=== PATIENT | female | born 1960 | race Caucasian/White ===

== ENCOUNTER 2018-01-16 08:04 | Observation (INO) ==
--- NOTE | 2018-01-16 08:44 | ED ---
HPI General Chief Complaint: Chest Pain Stated Complaint: chest pressure Time Seen by Provider: 01/16/18 08:31 History of Present Illness HPI narrative: Patient presents to the emergency department complaining of chest pain. That she was sitting on her couch when she got hot, sweaty, clammy , and had chest heaviness. New onset of symptoms. Chest pains described as midsternal, heavy, nonradiating, constant for 30 minutes and now is intermittent , no alleviating or aggravating factors, chest pain is now 5-6 out of 10. Patient was given 1 nitro by EVAC via spray, she took 1 aspirin at home and was given 3 more by EVAC. States that her pain was not helped with the nitroglycerin. She denies fever, chills, vomiting, lower extremity edema, but does report lightheadedness and dizziness and nausea. She also recently traveled to [place] approximately 2 weeks ago and was in the car for approximately 12-1/2 hours. She has no local it trainer as she just moved from [place]. Complete Quality Measures for STEMI Alert Patients Related Data Home Medications Medication Instructions Recorded Confirmed atorvastatin 20 mg PO DAILY 01/16/18 01/16/18 carvedilol 3.125 mg PO BID 01/16/18 01/16/18 hydrochlorothiazide 12.5 mg PO DAILY 01/16/18 01/16/18 montelukast 10 mg PO QPM 01/16/18 01/16/18 naproxen 500 mg PO BID 01/16/18 01/16/18 omeprazole 40 mg PO DAILY 01/16/18 01/16/18 ranitidine HCl 150 mg PO DAILY 01/16/18 01/16/18 Allergies Allergy/AdvReac Type Severity Reaction Status Date / Time No Known Allergies Allergy Verified 01/16/18 08:19 Review of Systems ROS Unobtainable All other systems reviewed negative except as stated in HPI PMFSH Social History Social History Substance History: No History of Abuse Second Hand Smoke Exposure: No Smoking Status: Former smoker Tobacco Type: Cigarettes How Often Do You Have a Drink Containing Alcohol: 2 to 4 times a month Recent Travel in [facility] within the Last 8 Weeks: No Recent Out of Country Travel within the Last 8 Weeks: No Immunization History Tetanus Immunization: >5 Years Hx Influenza Vaccine This Season: Yes Exam Narrative Exam Narrative: GENERAL: No acute distress. SKIN: Focused skin assessment warm/dry. HEAD: Atraumatic. Normocephalic. EYES: Pupils equal and round. No scleral icterus. No injection or drainage. ENT: No nasal bleeding or discharge. Mucous membranes pink and moist. NECK: Trachea midline. No JVD. CARDIOVASCULAR: Regular rate and rhythm. No murmur appreciated. RESPIRATORY: No accessory muscle use. Clear to auscultation. Breath sounds equal bilaterally. GASTROINTESTINAL: Abdomen soft, non-tender, nondistended. Hepatic and splenic margins not palpable. MUSCULOSKELETAL: No obvious deformities. No clubbing. No cyanosis. No edema. NEUROLOGICAL: Awake and alert. No obvious cranial nerve deficits. Motor grossly within normal limits. Normal speech. PSYCHIATRIC: Appropriate mood and affect; insight and judgment normal. Course Initial Documented Vital Signs Temperature 98.0 F 01/16/18 08:11 Pulse Rate 82 01/16/18 08:11 Respiratory Rate 20 01/16/18 08:11 Blood Pressure 146/68 H 01/16/18 08:11 Pulse Oximetry 97 01/16/18 08:11 Last Documented Vital Signs Temperature 98.0 F 01/16/18 08:11 Pulse Rate 50 L 01/16/18 11:00 Respiratory Rate 18 01/16/18 11:00 Blood Pressure 149/67 H 01/16/18 11:00 Pulse Oximetry 100 01/16/18 11:00 Medical Decision Making MDM Narrative Medical decision making narrative: Patient presents to the emergency department complaint of chest pain. Patient placed on cardiac cath technologist, continuous pulse ox , and IV access obtained. Labs, chest x-ray, EKG, 1 sublingual nitroglycerin, and 4 mg Zofran ODT ordered. CXR: CONCLUSION: No acute cardiopulmonary disease. Labs: Slight increase in BNP. Random glucose increased. 1108: patient is chest pain free. Will admit to chest pain observation unit. Differential Diagnosis Differential Diagnosis: ACS, CHF, PE Lab Data Result diagrams: 01/16/18 08:43 01/16/18 08:43 Lab Results 01/16/18 01/16/18 01/16/18 Range/Units 08:43 08:43 08:43 WBC 6.2 (4.0-11.0) th/mm3 RBC 4.20 (4.00-5.30) mil/mm3 Hgb 12.8 (11.6-15.3) gm/dL Hct 37.6 (35.0-46.0) % MCV 89.6 (80.0-100.0) fL MCH 30.5 (27.0-34.0) pg MCHC 34.0 (32.0-36.0) % RDW 13.8 (11.6-17.2) % Plt Count 369 (150-450) th/mm3 MPV 7.7 (7.0-11.0) fL Neut % (Auto) 71.0 H (16.0-70.0) % Lymph % (Auto) 16.2 (9.0-44.0) % Walsh % (Auto) 9.6 H (0.0-8.0) % Eos % (Auto) 2.4 (0.0-4.0) % Baso % (Auto) 0.8 (0.0-2.0) % Neut # (Auto) 4.4 (1.8-7.7) th/mm3 Lymph # (Auto) 1.0 (1.0-4.8) th/mm3 Walsh # (Auto) 0.6 (0.0-0.9) th/mm3 Eos # (Auto) 0.1 (0.0-0.4) th/mm3 Baso # (Auto) 0.1 (0.0-0.2) th/mm3 WBC Differential . Differential Comment Auto diff final PT 10.7 (9.8-11.6) sec INR 1.1 Ratio APTT 22.6 L (24.3-30.1) sec D-Dimer Quant (PE/DVT) 0.29 (0.00-0.50) mg/L FEU Sodium 137 (136-145) meq/L Potassium 3.9 (3.5-5.1) meq/L Chloride 98 (98-107) meq/L Carbon Dioxide 31.1 (21.0-32.0) meq/L Anion Gap 8 (5-15) meq/L BUN 8 (7-18) mg/dL Creatinine 0.60 (0.50-1.00) mg/dL Estimated GFR Greater than 89 (>89) mL/min Random Glucose 108 H (74-106) mg/dL Calcium 8.8 (8.5-10.1) mg/dL Magnesium 2.4 (1.5-2.5) mg/dL Total Bilirubin 0.4 (0.2-1.0) mg/dL AST 18 (15-37) U/L ALT 21 (10-53) U/L Alkaline Phosphatase 100 (45-117) U/L Total Creatine Kinase 38 (26-192) U/L Troponin I 0.04 (0.02-0.05) ng/mL B-Natriuretic Peptide (0-100) pg/mL Total Protein 7.0 (6.4-8.2) g/dL Albumin 4.1 (3.4-5.0) g/dL 01/16/18 Range/Units 08:43 WBC (4.0-11.0) th/mm3 RBC (4.00-5.30) mil/mm3 Hgb (11.6-15.3) gm/dL Hct (35.0-46.0) % MCV (80.0-100.0) fL MCH (27.0-34.0) pg MCHC (32.0-36.0) % RDW (11.6-17.2) % Plt Count (150-450) th/mm3 MPV (7.0-11.0) fL Neut % (Auto) (16.0-70.0) % Lymph % (Auto) (9.0-44.0) % Walsh % (Auto) (0.0-8.0) % Eos % (Auto) (0.0-4.0) % Baso % (Auto) (0.0-2.0) % Neut # (Auto) (1.8-7.7) th/mm3 Lymph # (Auto) (1.0-4.8) th/mm3 Walsh # (Auto) (0.0-0.9) th/mm3 Eos # (Auto) (0.0-0.4) th/mm3 Baso # (Auto) (0.0-0.2) th/mm3 WBC Differential Differential Comment PT (9.8-11.6) sec INR Ratio APTT (24.3-30.1) sec D-Dimer Quant (PE/DVT) (0.00-0.50) mg/L FEU Sodium (136-145) meq/L Potassium (3.5-5.1) meq/L Chloride (98-107) meq/L Carbon Dioxide (21.0-32.0) meq/L Anion Gap (5-15) meq/L BUN (7-18) mg/dL Creatinine (0.50-1.00) mg/dL Estimated GFR (>89) mL/min Random Glucose (74-106) mg/dL Calcium (8.5-10.1) mg/dL Magnesium (1.5-2.5) mg/dL Total Bilirubin (0.2-1.0) mg/dL AST (15-37) U/L ALT (10-53) U/L Alkaline Phosphatase (45-117) U/L Total Creatine Kinase (26-192) U/L Troponin I (0.02-0.05) ng/mL B-Natriuretic Peptide 128 H (0-100) pg/mL Total Protein (6.4-8.2) g/dL Albumin (3.4-5.0) g/dL Imaging Data Radiologist's impression: Chest X-Ray 01/16/18 08:40 CONCLUSION: No acute cardiopulmonary disease ECG Data Attestation: I personally reviewed and interpreted this ECG as follows: (Sinus bradycardia, rate 49, left axis deviation, Q-wave in lead I and aVL, T-wave inversion in 3, V1, and V2, low voltage) Discharge Plan Discharge Disposition Patient Disposition: 30 Still Patient Discharge Condition Condition: Stable Discharge Details Diagnosis: Chest pain Physicians Team ED Provider: Elisa Garcia Primary Care Provider: NON STAFF,PROVIDER Rxs /Orders / Referrals /Forms Prescriptions: No Action atorvastatin 20 mg Tablet 20 mg PO DAILY RF: 0 omeprazole 40 mg Capsule,Delayed Release(Dr/Ec) 40 mg PO DAILY RF: 0 carvedilol 3.125 mg Tablet 3.125 mg PO BID RF: 0 ranitidine HCl 150 mg Tablet 150 mg PO DAILY RF: 0 montelukast 10 mg Tablet 10 mg PO QPM RF: 0 naproxen 500 mg Tablet 500 mg PO BID RF: 0 hydrochlorothiazide 12.5 mg Tablet 12.5 mg PO DAILY RF: 0 Discharge Instructions Patient Printed Instructions: Chest Pain (ED) Discharge Interventions Interventions: Vital Signs Last Done: 01/16/18 11:00 Status ED Status: With Doctor
--- NOTE | 2018-01-16 08:56 | XR ---
EXAM DATE: 01/16/2018 8:54 AM EDT AGE/SEX: 57 years / Female INDICATIONS: Patient states shortness of breath. CLINICAL DATA: This is the patient's initial encounter. Patient reports that signs and symptoms have been present for 1 day and indicates a pain score of 4/10. MEDICAL/SURGICAL HISTORY: Hypertension. Hypercholesterolemia. None. COMPARISON: No prior exams available for comparison. FINDINGS: A single AP view of the chest demonstrates the lungs to be symmetrically aerated without evidence of mass, infiltrate or effusion. The cardiomediastinal contours are unremarkable. Osseous structures a re intact. CONCLUSION: No acute cardiopulmonary disease Electronically signed by: Mike Sparks MD 01/16/2018 8:55 AM EDT
[2018-01-16 09:20] LABS: Baso # (Auto) 0.1 th/mm3 (0.0-0.2); Baso % (Auto) 0.8 % (0.0-2.0); Eos # (Auto) 0.1 th/mm3 (0.0-0.4); Eos % (Auto) 2.4 % (0.0-4.0); Hematocrit 37.6 % (35.0-46.0); Hemoglobin 12.8 gm/dL (11.6-15.3); Lymph % (Auto) 16.2 % (9.0-44.0); Mean Corpuscular Hemoglobin 30.5 pg (27.0-34.0); Mean Corpuscular Volume 89.6 fL (80.0-100.0); Mean Platelet Volume 7.7 fL (7.0-11.0); Mono # (Auto) 0.6 th/mm3 (0.0-0.9); Mono % (Auto) 9.6 % (0.0-8.0); Neut # (Auto) 4.4 th/mm3 (1.8-7.7); Platelet Count 369 th/mm3 (150-450); Red Cell Distribution Width 13.8 % (11.6-17.2); White Blood Count 6.2 th/mm3 (4.0-11.0)
[2018-01-16 09:30] LABS: Alanine Aminotransferase 21 U/L (10-53); Albumin 4.1 g/dL (3.4-5.0); Anion Gap 8 meq/L (5-15); Aspartate Aminotransferase 18 U/L (15-37); Blood Urea Nitrogen 8 mg/dL (7-18); Calcium 8.8 mg/dL (8.5-10.1); Carbon Dioxide 31.1 meq/L (21.0-32.0); Chloride 98 meq/L (98-107); Glomerular Filtration Rate Greater Than 89 mL/min (>89); Glucose,Random 108 mg/dL (74-106); Magnesium 2.4 mg/dL (1.5-2.5); Potassium 3.9 meq/L (3.5-5.1); Sodium 137 meq/L (136-145)
[2018-01-16 09:34] LABS: Activated Partial Thrombo Time 22.6 sec (24.3-30.1); Alkaline Phosphatase 100 U/L (45-117); D-Dimer 0.29 mg/L FEU (0.00-0.50); INR 1.1 Ratio; Prothrombin Time 10.7 sec (9.8-11.6); Troponin I 0.04 ng/mL (0.02-0.05)
[2018-01-16 09:36] LABS: Creatine Kinase 38 U/L (26-192)
[2018-01-16] MEDS ORDERED: Acetaminophen 500 MG Tablet PO PRN (11:21)
--- NOTE | 2018-01-16 11:55 | P.HPCA ---
History of Present Illness Primary Care Physician: UNKNOWN Chief Complaint: Chest pressure History of Present Illness: 57-year-old female with history of hypertension and hyperlipidemia presents emergency room for further evaluation of nonexertional chest pain. Onset 7:30 AM. Location substernal. Characterizes heaviness and tightness. Associated symptoms nausea, dizziness, diaphoretic, and dyspnea. Severe in severity. No radiation. Duration of severe discomfort 15 minutes, followed by moderate discomfort. Pain never completely resolved, currently reports mild tightness. No precipitating or relieving factors. Denies any similar pain in the past. Movement or deep breathing does not make pain better or worse. Endorses similar pain last week while arguing with sister, not as severe and short duration. No known coronary artery disease. Endorses a history of tachycardia 15 years ago, therefore follows with a admissions specialist yearly. Recently moved to [place] and currently not established with a primary care provider or admissions specialist locally. Last visit to admissions specialist May 2017 in [place]. Denies any recent cardiac testing. Never required cardiac catheterization. No history of coronary artery disease. No recent illness, fever, or injury. Family history noncontributory for early onset cardiovascular disease. Remote smoker, quit 10 years ago. - Diagnosis (1) Chest pain of uncertain etiology (2) Bilateral carotid bruits (3) H/O: hypertension (4) H/O hyperlipidemia Review of Systems All other systems reviewed negative except as stated in HPI (intentional weight loss of #40) [facility] - History History Provided By: Patient - Medical History Medical History: Medical History (Last Updated 01/16/18 @ 13:16 by KASEY Awad) Hx of hysterectomy (Acute) Anemia Basal cell carcinoma Onset Date: ~10/2017 Cancer Dysrhythmia, cardiac High cholesterol Hypertension - Tobacco History Second Hand Smoke Exposure: No Tobacco Use In Past 30 Days: No Smoking Status: Former smoker (Former smoker, quit 10 years ago. Smoked 1.5 packs/daily) Tobacco Type: Cigarettes Years Smoked: 30 Number of Pack Years (if former smoker): 70 - Alcohol History How Often Do You Have a Drink Containing Alcohol: 2 to 4 times a month - Substance Use History Substance History: No History of Abuse - Travel History History of Recent Travel: Yes (Returned from [place] 2 weeks ago.) Recent Travel in the [facility] Within the Last 8 Weeks: No Recent Travel Out of the Country Within the Last 8 Weeks: No - Immunization History Tetanus Immunization: >5 Years Hx Influenza Vaccine This Season: Yes Medications and Allergies Active Medications: Active Medications Acetaminophen (Tylenol) 500 mg PO Q4H PRN PRN Reason: HEADACHE Nitroglycerin (Nitrostat Sl) 0.4 mg SL Q5M PRN PRN Reason: CHEST PAIN Sodium Chloride (Ns Flush) 2 ml IV.FLUSH BID CASSY Sodium Chloride (Ns Flush) 2 ml IV.FLUSH PRN PRN PRN Reason: FLUSH AFTER USING IV ACCESS Allergies Allergy/AdvReac Type Severity Reaction Status Date / Time No Known Allergies Allergy Verified 01/16/18 08:19 Home Medications Medication Instructions Recorded Confirmed Type atorvastatin 20 mg PO DAILY 01/16/18 01/16/18 History carvedilol 3.125 mg PO BID 01/16/18 01/16/18 History hydrochlorothiazide 12.5 mg PO DAILY 01/16/18 01/16/18 History montelukast 10 mg PO QPM 01/16/18 01/16/18 History naproxen 500 mg PO BID 01/16/18 01/16/18 History omeprazole 40 mg PO DAILY 01/16/18 01/16/18 History ranitidine HCl 150 mg PO DAILY 01/16/18 01/16/18 History Exam Vital signs: Vital Signs 01/16/18 08:11 01/16/18 08:16 01/16/18 09:16 Temperature 98.0 F Pulse Rate 82 50 L 46 L Respiratory Rate 20 20 16 Blood Pressure 146/68 H 146/68 H 133/75 Pulse Oximetry 97 99 100 01/16/18 10:00 01/16/18 11:00 Temperature Pulse Rate 47 L 50 L Respiratory Rate 17 18 Blood Pressure 149/67 H 149/67 H Pulse Oximetry 100 100 Intake & Output 01/15/18 01/16/18 01/16/18 18:59 06:59 18:59 Weight 86.636 kg Narrative: GENERAL: Alert WN, WD, NAD, pleasant, obese female who appears older than stated age HEAD: NC, AT NECK: Supple, no masses, trachea midline CV: bradycardic regular rhythm, without murmur, rub, gallop, no JVD. Bilateral carotid bruits. No femoral bruits. Chest wall nontender with palpation. RESP: Clear lungs throughout bilateral, no crackles, wheeze, rhonchi, symmetrical chest rise, nonlabored, able to speak in full sentences ABD: Soft, NT, ND, no masses, positive bowel tones EXT: Pulses +2x4, no dependent edema MS: Normal tone x4 extremities, nontender, no obvious deformities, full range of motion NEURO: CN II through CN XII grossly intact, motor strength 5/5 PSYCH: A+O x3, pleasant affect, appropriate speech, mood, insight and judgment SKIN: Normal turgor, normal texture, no lesions, no rashes, brisk cap refill, even hair distribution Results 01/16/18 08:43 01/16/18 08:43 Cardiac Enzymes 01/16/18 01/16/18 Range/Units 08:43 08:43 AST 18 (15-37) U/L Troponin I 0.04 (0.02-0.05) ng/mL B-Natriuretic Peptide 128 H (0-100) pg/mL Coagulation 01/16/18 01/16/18 Range/Units 08:43 08:43 PT 10.7 (9.8-11.6) sec APTT 22.6 L (24.3-30.1) sec B-Natriuretic Peptide 128 H (0-100) pg/mL CBC 01/16/18 Range/Units 08:43 WBC 6.2 (4.0-11.0) th/mm3 RBC 4.20 (4.00-5.30) mil/mm3 Hgb 12.8 (11.6-15.3) gm/dL Hct 37.6 (35.0-46.0) % Plt Count 369 (150-450) th/mm3 Neut # (Auto) 4.4 (1.8-7.7) th/mm3 Lymph # (Auto) 1.0 (1.0-4.8) th/mm3 [place] # (Auto) 0.6 (0.0-0.9) th/mm3 Eos # (Auto) 0.1 (0.0-0.4) th/mm3 Baso # (Auto) 0.1 (0.0-0.2) th/mm3 Comprehensive Metabolic Panel 01/16/18 Range/Units 08:43 Sodium 137 (136-145) meq/L Potassium 3.9 (3.5-5.1) meq/L Chloride 98 (98-107) meq/L Carbon Dioxide 31.1 (21.0-32.0) meq/L BUN 8 (7-18) mg/dL Creatinine 0.60 (0.50-1.00) mg/dL Calcium 8.8 (8.5-10.1) mg/dL AST 18 (15-37) U/L ALT 21 (10-53) U/L Alkaline Phosphatase 100 (45-117) U/L Total Protein 7.0 (6.4-8.2) g/dL Albumin 4.1 (3.4-5.0) g/dL Intake and Output 01/15/18 01/16/18 01/16/18 22:59 06:59 14:59 Other: Weight 86.636 kg Patient Weight 01/17/18 06:59 Weight 86.636 kg EKG interpretations - EKG EKG results cardiology: sinus rhythm, normal axis, normal QRS, normal ST/T (nsr , normal axis, t wave inversion V1, V2) Caprini VTE Risk Assessment Caprini VTE Risk Assessment: No/Low Risk (score <= 1) Caprini Risk Assessment Model: Point Value = 1 Point Value = 2 Point Value = 3 Point Value = 5 Age 41-60 Minor surgery BMI > 25 kg/m2 Swollen legs Varicose veins or History of unexplained or recurrent spontaneous Oral contraceptives or hormone replacement Sepsis (< 1 month) Serious lung disease, including pneumonia (< 1 month) Abnormal pulmonary function Acute myocardial infarction Congestive heart failure (< 1 month) History of inflammatory bowel disease Medical patient at bed rest Age 61-74 Arthroscopic surgery Major open surgery (> 45 min) Laparoscopic surgery (> 45 min) Malignancy Confined to bed (> 72 hours) Immobilizing plaster cast Central venous access Age >= 75 History of VTE Family history of VTE Factor V Leiden Prothrombin [id number] Lupus anticoagulant Anticardiolipin antibodies Elevated serum homocysteine Heparin-induced thrombocytopenia Other congenital or acquired thrombophilia Stroke (< 1 month) Elective arthroplasty Hip, pelvis, or leg fracture Acute spinal cord injury (< 1 month) Prophylaxis Regimen: Total Risk Factor Score Risk Level Prophylaxis Regimen 0-1 Low Early ambulation 2 Moderate Order ONE of the following: *Sequential Compression Device (SCD) *Heparin 5000 units SQ BID 3-4 Higher Order ONE of the following medications: *Heparin 5000 units SQ TID *Enoxaparin/Lovenox 40 mg SQ daily (WT < 150 kg, CrCl > 30 mL/min) *Enoxaparin/Lovenox 30 mg SQ daily (WT < 150 kg, CrCl > 10-29 mL/min) *Enoxaparin/Lovenox 30 mg SQ BID (WT < 150 kg, CrCl > 30 mL/min) AND/OR *Sequential Compression Device (SCD) 5 or more Highest Order ONE of the following medications: *Heparin 5000 units SQ TID (Preferred with Epidurals) *Enoxaparin/Lovenox 40 mg SQ daily (WT < 150 kg, CrCl > 30 mL/min) *Enoxaparin/Lovenox 30 mg SQ daily (WT < 150 kg, CrCl > 10-29 mL/min) *Enoxaparin/Lovenox 30 mg SQ BID (WT < 150 kg, CrCl > 30 mL/min) AND *Sequential Compression Device (SCD) Assessment and Plan - Assessment (1) Chest pain of uncertain etiology Code(s): R07.89 - Other chest pain Status: Acute Plan: Admitted chest pain center. Continue ruling out with ACS protocol. Will be seen evaluated by Dr. Live Smith. If ruled out discussed likely will complete cardiac chemical stress testing, as she has knee pain that would prevent her from walking on treadmill. Agreeable to plan of care. Further disposition to follow. Encouraged her to establish with a local admissions specialist as well as a primary care provider in the area. (2) Bilateral carotid bruits Code(s): R09.89 - Other specified symptoms and signs involving the circulatory and respiratory systems Status: Acute Plan: Discussed assessment findings. Follow-up with primary care provider for further workup. (3) H/O: hypertension Code(s): Z86.79 - Personal history of other diseases of the circulatory system Status: Chronic Plan: Continue carvedilol and hydrochlorothiazide. Support given around her recent weight loss. Increase daily activity and continue lifestyle modifications. (4) H/O hyperlipidemia Code(s): Z86.39 - Personal history of other endocrine, nutritional and metabolic disease Status: Chronic Plan: Continue atorvastatin.
[2018-01-16 14:02] LABS: Troponin I 0.04 ng/mL (0.02-0.05)
[2018-01-16 16:41] LABS: Troponin I 0.03 ng/mL (0.02-0.05)
[2018-01-17] MEDS ORDERED: Regadenoson Inj 0.4 MG/5 ML Syringe IV.PUSH ONE (09:28)
--- NOTE | 2018-01-17 10:49 | NM ---
EXAM DATE: 01/17/2018 10:46 AM EDT AGE/SEX: 57 years / Female INDICATIONS:Angina. . Mid chest pain for one day. CLINICAL DATA: This is the patient's initial encounter. Patient reports that signs and symptoms have been present for 1 day and indicates a pain score of 5/10. MEDICAL/SURGICAL HISTORY: Hypertension. Carcinoma, basal cell. Cholecystectomy. COMPARISON: No prior exams available for comparison. No external comparison. DOSE: 8.8 mCi Tc 99m Myoview at rest 25.8 mCi [id number] at stress 0.4 mg Lexiscan STRESS SYMPTOMS: None. EJECTION FRACTION: >70 % TECHNIQUE: The patient underwent pharmacologic stress with infusion of prescribed dose. Continuous ECG tracing was monitored during stress. Gated SPECT imaging was performed after stress and conventi onal SPECT imaging was performed at rest. The examination was performed on a SPECT/CT scanner, both attenuation and non-corrected datasets were reviewed. FINDINGS: Distribution: The maximum perfused segment at stress is in the inferior wall. Perfusion Study: The pattern of perfusion at stress is within normal limits. Gated Study: There are intact wall motion and wall thickening without hypokinetic or dyskinetic segm ents. The ejection fraction is calculated at >70%. RISK CATEGORY: Low (<1% Annual Motality Rate) CONCLUSION: 1. No significant reversibility to suggest ischemia. 2. Normal wall motion with ejection fraction greater than 70%. Electronically signed by: Drake Álvarez MD 01/17/2018 10:47 AM EDT
[2018-01-17] MEDS ORDERED: Famotidine 20 MG Tablet PO SCH (13:30)
[2018-01-17] MEDS ORDERED: hydroCHLOROthiazide 25 MG Tablet PO SCH (13:30)
[2018-01-17] MEDS ORDERED: Montelukast 10 MG Tablet PO SCH (18:00)
[2018-01-17 22:06] VITALS: BP 166/90; PULSE 61; RESP 16; TEMP 98.4; O2SAT 99
--- NOTE | 2018-01-18 09:05 | ECG ---
Date Performed: 01/16/2018 Time Performed: 16:08:44 PTAGE: 57 years EKG: SINUS BRADYCARDIA MODERATE T-WAVE ABNORMALITY, CONSIDER ANTERIOR ISCHEMIA ABNORMAL ECG INTE RPRETATION BASED ON A DEFAULT AGE OF 40 YEARS PREVIOUS TRACING : 01/16/2018 12.03 Since previous tracing, no significant change noted DOCTOR: Live Smith Interpretating Date/Time 01/18/2018 09:03:08
--- NOTE | 2018-01-18 09:06 | ECG ---
Date Performed: 01/16/2018 Time Performed: 08:16:51 PTAGE: 57 years EKG: SINUS BRADYCARDIA LOW QRS VOLTAGE IN PRECORDIAL LEADS PROLONGED QT INTERVAL ABNORMAL ECG NO PREVIOUS TRACING DOCTOR: Live Smith Interpretating Date/Time 01/18/2018 09:03:42
--- NOTE | 2018-01-18 09:06 | ECG ---
Date Performed: 01/16/2018 Time Performed: 12:03:42 PTAGE: 57 years EKG: SINUS BRADYCARDIA LOW QRS VOLTAGE IN PRECORDIAL LEADS BORDERLINE ECG NO PREVIOUS TRACING DOCTOR: Live Smith Interpretating Date/Time 01/18/2018 09:03:21
--- NOTE | 2018-01-18 09:09 | TR ---
Date Performed: 01/17/2018 Time Performed: 09:29:08 DOCTOR: Live Smith DRUG LIST: CLINICAL HISTORY: REASON FOR TEST: REASON FOR ENDING: OBSERVATION: CONCLUSION: COMMENTS: Lexiscan stress test was performed under standard four minute protocol. Radionuclide was injected one minute prior to ending the test. No electrocardiographic abormalities were present t o suggest ischemia. Nuclear imaging and interpretation are pending.
== END 2018-01-17 14:24 | disposition home or self-care (01) ==
LOC: NEPGCP 08:04 → NEDA 08:04 → NEPE 08:04 → NEPGCP 12:11
PROVIDERS: ADMIT Internal Medicine Cardiovascular Disease; ATTEND Internal Medicine Cardiovascular Disease
DX: R09.89 Other specified symptoms and signs involving the circulatory and respiratory systems; R06.00 Dyspnea, unspecified; I10 Essential (primary) hypertension; M25.569 Pain in unspecified knee; R07.89 Other chest pain; Z87.891 Personal history of nicotine dependence; R11.0 Nausea; R61 Generalized hyperhidrosis; E78.5 Hyperlipidemia, unspecified; Z85.828 Personal history of other malignant neoplasm of skin; E78.00 Pure hypercholesterolemia, unspecified; R42 Dizziness and giddiness